=== PATIENT | male | born 1960 | race Caucasian/White ===

== ENCOUNTER 2022-02-26 10:36 | Outpatient (CLI) | payer OTHER, BC, SELFPAY ==
[2022-02-26 10:48] LABS: Hematocrit 51.3 % (40.0-54.0); Hemoglobin 17.1 g/dL (14.0-18.0); Mean Corpuscular HGB Conc 33.3 g/dL (32.0-36.0); Mean Corpuscular Hemoglobin 31.3 pg (27.0-31.0); Mean Platelet Volume 12.7 fl (8.7-11.0); Platelet Count Result 247 K/mm3 (150-420); Red Blood Count 5.46 M/mm3 (4.70-6.10); Red Cell Distribution Width 12.8 % (11.6-14.4); White Blood Count 10.5 K/mm3 (4.8-10.8)
[2022-02-26 11:07] LABS: Hemoglobin A1C 5.5 % (<5.7)
[2022-02-26 11:47] LABS: Alanine Aminotransferase 20 U/L (16-63); Albumin Level 4.2 g/dL (3.4-5.0); Alkaline Phosphatase 125 U/L (46-116); Anion Gap 3 mmol/L (8-16); Aspartate Amino Transferase 18 U/L (15-37); Bilirubin,Total 0.8 mg/dL (0.00-1.00); Blood Urea Nitrogen 12 mg/dL (7-18); Calcium 9.5 mg/dL (8.5-10.1); Carbon Dioxide 33 mmol/L (21-32); Chloride 103 mmol/L (98-108); Cholesterol 199 mg/dL (0-200); Estimated Glomerular Filt Rate > 60; Glucose 98 mg/dL (70-99); HDL Direct 44 mg/dL (40-60); LDL Cholesterol Calculated 137 mg/dL (<130); Osmolality Calculated 287 mOsm/kg (285-295); Potassium 4.1 mmol/L (3.5-5.1); Sodium 139 mmol/L (136-145); Total Protein 7.5 g/dL (6.4-8.2); Triglycerides 92 mg/dL (0-150); Vitamin B12 1870 pg/mL (193-986)
[2022-02-26 11:48] LABS: Folic Acid > 20.0 ng/mL (8.6->20)
[2022-02-26 11:49] LABS: Thyroid Stimulating Hormone Reflex 1.45 u/IU/mL (0.36-3.74)
== END 2022-02-26 10:37 | disposition home or self-care (01) ==
LOC: CHSLAB 10:39
PROVIDERS: PCP Family Medicine; Visit Provider Family Medicine
DX: Z00.00 Encounter for general adult medical examination without abnormal findings (principal); G62.9 Polyneuropathy, unspecified; E11.9 Type 2 diabetes mellitus without complications; E53.8 Deficiency of other specified B group vitamins
CPT/HCPCS: 36415; 80053; 80061; 82607; 82746; 83036; 84443; 85027

== ENCOUNTER 2022-03-12 14:12 | Outpatient (CLI) | payer BC, SELFPAY ==
--- NOTE | 2022-03-12 14:16 | ECG_ITS ---
Measurements Intervals [place] Rate: 54 P: 80 [place]: 161 QRS: -53 QRSD: 115 T: 71 QT: 402 QTc: 382 Interpretive Statements SINUS BRADYCARDIA LEFT AXIS DEVIATION INCOMPLETE RIGHT BUNDLE BRANCH BLOCK SEPTAL MYOCARDIAL INFARCTION , PROBABLY OLD [40+ ms Q WAVE IN V1/V2] LOW VOLTAGE QRS IN LIMB LEADS ABNORMAL ECG NO PREVIOUS ECG AVAILABLE FOR COMPARISON Electronically Signed On 03-13-2022 17:04:20 CDT by Tonny Ponce M.D.
== END 2022-03-12 14:13 | disposition home or self-care (01) ==
LOC: CHSCARD 14:15
PROVIDERS: PCP Family Medicine; Visit Provider Internal Medicine Cardiovascular Disease
DX: I48.91 Unspecified atrial fibrillation (principal)
CPT/HCPCS: 93005

== ENCOUNTER 2022-06-18 16:00 | Outpatient (CLI) | payer BC, SELFPAY ==
[2022-06-20 13:08] LABS: NIL 0.03 IU/mL; Quantiferon TB Plus, 1T NEGATIVE (NEGATIVE)
[2022-06-21 05:28] LABS: Rubeola Measles IgG >300.00 AU/mL
== END 2022-06-18 16:01 | disposition home or self-care (01) ==
LOC: CHSLAB 16:02
PROVIDERS: PCP Family Medicine; Visit Provider Family Medicine
DX: Z00.00 Encounter for general adult medical examination without abnormal findings (principal)
CPT/HCPCS: 36415; 86480; 86735; 86765; 86787